=== PATIENT | male | born 1960 | race Caucasian/White ===

== ENCOUNTER → 2016-10-03 | Outpatient (CLI) | payer OTHER ==
[2016-10-03 15:45] LABS: APPEARANCE,URINE CLEAR; BILIRUBIN,URINE NEGATIVE (NEGATIVE); GLUCOSE, URINE NEGATIVE (NEGATIVE); KETONES,URINE NEGATIVE (NEGATIVE); LEUKOCYTE ESTERASE,URINE NEGATIVE (NEGATIVE); NITRITE,URINE NEGATIVE (NEGATIVE); PROTEIN,URINE NEGATIVE (NEGATIVE); URINE SPECIFIC GRAVITY 1.012; UROBILINOGEN,URINE NEGATIVE mg/dL (<2.0)
[2016-10-03 15:50] LABS: ABSOLUTE EOSINOPHILS # (AUTO) 0.3 10^3/uL (0.0-0.6); ABSOLUTE LYMPHOCYTES (AUTO) 1.7 10^3/uL (0.5-4.7); ABSOLUTE MONOCYTES (AUTO) 0.6 10^3/uL (0.1-1.4); ABSOLUTE NEUT (AUTO) 3.7 10^3/uL (1.7-8.2); BASOPHILS % (AUTO) 0.6 % (0-2); EOSINOPHILS % (AUTO) 4.2 % (0-6); HEMATOCRIT 41.9 % (37.9-51.0); HEMOGLOBIN 13.7 g/dL (13.5-17.0); HGB HCT DIFFERENCE -0.8; LYMPHOCYTES % (AUTO) 26.5 % (13-45); MEAN CORPUSCULAR HEMOGLOBIN 31.8 pg (27.0-33.4); MEAN CORPUSCULAR HGB CONC 32.7 g/dL (32.0-36.0); MEAN CORPUSCULAR VOLUME 97 fl (80-97); MONOCYTES % (AUTO) 9.2 % (3-13); RED BLOOD COUNT 4.31 10^6/uL (4.35-5.55); RED CELL DISTRIBUTION WIDTH 14.3 % (11.5-14.0); SEGMENTED NEUTROPHILS % (AUTO) 59.5 % (42-78); WHITE BLOOD COUNT 6.3 10^3/uL (4.0-10.5)
[2016-10-03 16:20] LABS: ANION GAP 10 (5-19); BLOOD UREA NITROGEN 15 mg/dL (7-20); CALCIUM 9.3 mg/dL (8.4-10.2); CARBON DIOXIDE 21 mmol/L (22-30); CHLORIDE 109 mmol/L (98-107); CREATININE RESULT 0.97 mg/dL (0.52-1.25); GLUCOSE 110 mg/dL (75-110); POTASSIUM 4.1 mmol/L (3.6-5.0); SODIUM 140.1 mmol/L (137-145)
[2016-10-03 16:40] LABS: ERYTHROCYTE SEDIMENTATION RATE 12 mm/hr (0-20)
--- NOTE | 2016-10-03 22:13 | EKG REPORT ---
SEVERITY:- DEFECTIVE ECG - RIGHT AND LEFT ARM LEADS REVERSED, PLEASE REPEAT ECG : Confirmed by: Rivka Melissa MD 03-Oct-2016 22:11:54
--- NOTE | 2016-10-07 17:45 | EKG REPORT ---
SEVERITY:- NORMAL ECG - SINUS RHYTHM : Confirmed by: Rivka Melissa MD 07-Oct-2016 17:44:55
== END ==
LOC: OD 14:12
PROVIDERS: ATTEND Orthopaedic Surgery
DX: Z01.810 Encounter for preprocedural cardiovascular examination (principal); Z01.812 Encounter for preprocedural laboratory examination; Z01.818 Encounter for other preprocedural examination
CPT/HCPCS: 36415; 71020; 80048; 81001; 85025; 85652; 93005; 93010

== ENCOUNTER 2016-11-27 11:40 | Inpatient (IN) | payer OTHER ==
[2016-11-17 11:12] LABS: HEMATOCRIT 41.5 % (37.9-51.0); HEMOGLOBIN 13.7 g/dL (13.5-17.0); HGB HCT DIFFERENCE -0.4; MEAN CORPUSCULAR HEMOGLOBIN 31.3 pg (27.0-33.4); MEAN CORPUSCULAR HGB CONC 32.9 g/dL (32.0-36.0); MEAN CORPUSCULAR VOLUME 95 fl (80-97); RED BLOOD COUNT 4.37 10^6/uL (4.35-5.55); RED CELL DISTRIBUTION WIDTH 14.7 % (11.5-14.0); WHITE BLOOD COUNT 8.2 10^3/uL (4.0-10.5)
[2016-11-17 11:15] LABS: APPEARANCE,URINE CLEAR; BILIRUBIN,URINE NEGATIVE (NEGATIVE); GLUCOSE, URINE NEGATIVE (NEGATIVE); KETONES,URINE NEGATIVE (NEGATIVE); LEUKOCYTE ESTERASE,URINE NEGATIVE (NEGATIVE); NITRITE,URINE NEGATIVE (NEGATIVE); PROTEIN,URINE NEGATIVE (NEGATIVE); URINE SPECIFIC GRAVITY 1.018; UROBILINOGEN,URINE NEGATIVE mg/dL (<2.0)
[2016-11-17 11:34] LABS: ANION GAP 13 (5-19); BLOOD UREA NITROGEN 17 mg/dL (7-20); C-REACTIVE PROTEIN 5.9 mg/L (<10.0); CALCIUM 9.2 mg/dL (8.4-10.2); CARBON DIOXIDE 19 mmol/L (22-30); CHLORIDE 109 mmol/L (98-107); CREATININE RESULT 0.94 mg/dL (0.52-1.25); GLUCOSE 124 mg/dL (75-110); SODIUM 141.1 mmol/L (137-145)
[2016-11-17 11:53] LABS: ERYTHROCYTE SEDIMENTATION RATE 15 mm/hr (0-20)
[~2016-11-27 11:40] MED LIST: DEXMEDETOMIDINE INJ 80 MCG/20 ML VIAL IV ONE; FENTANYL CITRATE INJ/PF 100 MCG/2 ML AMPUL ONE; GLYCOPYRROLATE INJ 0.4 MG/2 ML VIAL ONE; LACTATED RINGERS 1000 ML IV PRN; LIDOCAINE 0.5% INJ-PF (5 MG/ML) 50 ML SDV SUBCUT PRN; LIDOCAINE 2% INJ-PF (20 MG/ML) 10 ML AMPUL ONE; MIDAZOLAM 2 MG/2 ML INJ ONE; OXYCODONE HCL SR 10 MG TABLET PO PRN; PROPOFOL INJ 200 MG/20 ML VIAL IV ONE; SCOPOLAMINE HYDROBROMIDE 1.5 MG PATCH.TD72 TOP PRN; TRANEXAMIC ACID INJ/PF 1,000 MG/10 ML SDV IV ONE
[2016-11-27] MEDS ORDERED: ONDANSETRON HCL INJ/PF 4 MG/2 ML SDV ONE (12:47)
[2016-11-27] MEDS ORDERED: DEXAMETHASONE SOD PHOSPHATE INJ 4 MG/1 ML VIAL ONE (12:47)
[2016-11-27] MEDS: VANCOMYCIN HCL 1,000 MG in DEXTROSE 5%-WATER 250 ML IV PRN ×2 (12:50→20:33)
[2016-11-27] MEDS: LANSOPRAZOLE 15 MG TAB.RAP.DR PO PRN ×2 (12:50→20:33)
[2016-11-27] MEDS ORDERED: VANCOMYCIN HCL INJ 1000 MG VIAL ONE (13:38)
[2016-11-27] MEDS: BUPIVACAINE INJ/PF LIPOSOME/PF 266 MG/20 ML SDV IJ PRN ×2 (13:42→20:33)
[2016-11-27] MEDS: IBUPROFEN 800 MG/NS 250 ML IV PRN ×4 (13:43→20:33)
[2016-11-27] MEDS ORDERED: DIPHENHYDRAMINE HCL 50 MG/ML VIAL IV PRN ×2 (14:03→15:21)
[2016-11-27] MEDS ORDERED: FENTANYL CITRATE INJ/PF 100 MCG/2 ML AMPUL IV PRN ×3 (14:03)
[2016-11-27] MEDS ORDERED: OXYCODONE-ACETAMINOPHEN 5-325 MG TABLET PO PRN ×2 (14:03)
[2016-11-27] MEDS ORDERED: ONDANSETRON HCL INJ/PF 4 MG/2 ML SDV IV PRN (14:03)
[2016-11-27] MEDS ORDERED: MEPERIDINE HCL/PF INJ 25 MG/1 ML DISP.SYRIN IV PRN (14:03)
[2016-11-27] MEDS ORDERED: MORPHINE SULFATE 10 MG/ML INJ IV PRN ×4 (14:03→15:21)
[2016-11-27] MEDS ORDERED: PROMETHAZINE HCL INJ 25 MG/1 ML VIAL IV PRN ×2 (14:03)
[2016-11-27] MEDS ORDERED: MORPHINE SULFATE 10 MG/ML INJ ONE (14:53)
[2016-11-27] MEDS ORDERED: RINGERS SOLUTION,LACTATED 1,000 ML IV PRN (15:21)
[2016-11-27] MEDS ORDERED: ZOLPIDEM TARTRATE 5 MG TABLET PO PRN (15:21)
[2016-11-27] MEDS ORDERED: OXYCODONE HCL IR 5 MG TABLET PO PRN (15:21)
[2016-11-27] MEDS ORDERED: MORPHINE SULFATE 10 MG/ML INJ IM PRN (15:21)
[2016-11-27] MEDS ORDERED: ACETAMINOPHEN 325 MG TABLET PO PRN (15:21)
[2016-11-27] MEDS ORDERED: ONDANSETRON 4 MG TAB.RAPDIS PO PRN (15:21)
--- NOTE | 2016-11-27 15:21 | Operative Report ---
Operative Report DATE OF SURGERY: 11/27/16 PREOPERATIVE DIAGNOSIS: Failed left knee arthroplasty OPERATION: Left knee revision arthroplasty with hardware removal. Tobacco screw removal SURGEON: LEENA BECERRA ANESTHESIA: GA TISSUE REMOVED OR ALTERED: Bone and implant to pathology ESTIMATED BLOOD LOSS: 100 PROCEDURE: Implants used: Kayy triathlon size 6 TS femur, 6 tibia, 13 mm TS spacer Procedure: The patient supine on the operating table left lower extremities prepped and draped in a sterile fashion. A standard midline parapatellar approach knee is taken. Her previous knee incisions that are older than the current incision and hence I feel comfortable that making this incision should not compromise any anterior skin. Upon entering the knee capsule cultures are taken. The underlying implants are identified. The polyethylene was removed uneventfully. The femoral components removed using a saw. There is minor bone loss associated with this. Similarly the tibia is removed after removing 4 screws stacked osteotomes used to elevate the tibial component and removed uneventfully with no bone loss. The femur was then prepared using a series of intramedullary reamers until a 16 mm reamer seated. Subsequently distal cuts as well as the box cut are performed. In performing the box lining machine operator [place] screw was likely within the notch and had to be removed to complete the notch cut. Similarly the canal is reamed and reamer based cutting jigs were used to reshape the proximal tibia. Reduction was now performed with 6 femur 6 tibia associated stems and a 9 mm poly-. This was full extension and central patellofemoral tracking tracking. The patella is examined and is cleared of all soft tissue overhang. This is a metal-backed patella my bias would been to revise this because of the potential problems associated with it. However the polyethylene does not appear to be significantly degraded and the implant is clearly stable. I am somewhat concerned that if I remove this that there will be significant loss of bone stock and then reconstructing the patella will there be much more difficult. Therefore decision was made to leave it in place. Implants removed. Polymethyl methacrylate with tobramycin was mixed and used to cement the above implants in place. The plan is to segments both the articular surfaces as well as the metadiaphysis without cementing the stem themselves. Adequate care in the cement excess cement is removed. Different liners are trialed and a 13 mm liner gives adequate medial lateral stability as well as still allowing full extension. The final liner was impacted into position. The tourniquet was deflated. Hemostasis obtained with electrocautery. The wound was then closed in layers interrupted Vicryl followed by. A sterile compressive dressing was applied and the patient's return to the PACU in satisfactory condition.
[2016-11-27] MEDS ORDERED: FENTANYL CITRATE INJ/PF 100 MCG/2 ML AMPUL ONE (15:38)
--- NOTE | 2016-11-27 16:09 | RADIOLOGY REPORT (SQ) ---
EXAM DESCRIPTION: KNEE LEFT 2 VIEWS COMPLETED DATE/TIME: 11/27/2016 3:40 pm REASON FOR STUDY: Post OP -Long Cassette in PACU M25.562 PAIN IN LEFT KNEE COMPARISON: None. NUMBER OF VIEWS: Two view(s). TECHNIQUE: Digital radiographic images of the left knee post-procedure. LIMITATIONS: None. FINDINGS: BONES: No worrisome or unexpected findings post-procedure. DEVICE: Total knee arthroplasty. SOFT TISSUES: No worrisome findings. Expected postoperative soft tissue changes. IMPRESSION: SATISFACTORY POSTOPERATIVE LEFT KNEE. TECHNICAL DOCUMENTATION: JOB ID: [id number] [employer]- All Rights Reserved
[2016-11-27] MEDS ORDERED: TOPIRAMATE 100 MG TABLET PO SCH (18:00)
[2016-11-27] MEDS ORDERED: PREGABALIN 75 MG CAPSULE PO SCH (18:00)
[2016-11-27] MEDS ORDERED: SENNOSIDES/DOCUSATE 8.6-50 MG 1 EACH TABLET PO SCH (18:00)
[2016-11-27] MEDS ORDERED: LORATADINE 10 MG TABLET PO SCH (18:00)
[2016-11-27] MEDS ORDERED: PAROXETINE HCL 20 MG TABLET PO SCH (18:00)
[2016-11-27] MEDS: CEFAZOLIN INJ 1 GM VIAL IV PRN ×2 (20:30→20:33)
[2016-11-27] MEDS ORDERED: OXYCODONE HCL SR 10 MG TABLET PO SCH (22:00)
[2016-11-27] MEDS ORDERED: TRAZODONE HCL 50 MG TABLET PO SCH (22:00)
[2016-11-27] MEDS ORDERED: RIVAROXABAN 10 MG TABLET PO SCH (22:00)
[2016-11-27] MEDS: IBUPROFEN 800 MG in NORMAL SALINE 250 ML IV SCH (22:13)
[2016-11-28] MEDS ORDERED: VANCOMYCIN HCL 1,000 MG in DEXTROSE 5%-WATER 250 ML IV ONE (03:21)
[2016-11-28] MEDS: IBUPROFEN 800 MG in NORMAL SALINE 250 ML IV SCH (05:23)
[2016-11-28 05:53] LABS: HEMATOCRIT 36.8 % (37.9-51.0); HGB HCT DIFFERENCE -0.8; MEAN CORPUSCULAR HEMOGLOBIN 31.3 pg (27.0-33.4); MEAN CORPUSCULAR HGB CONC 32.6 g/dL (32.0-36.0); MEAN CORPUSCULAR VOLUME 96 fl (80-97); RED BLOOD COUNT 3.84 10^6/uL (4.35-5.55); RED CELL DISTRIBUTION WIDTH 14.6 % (11.5-14.0); WHITE BLOOD COUNT 10.8 10^3/uL (4.0-10.5)
[2016-11-28] MEDS ORDERED: LANSOPRAZOLE 30 MG TAB.RAP.DR PO SCH (06:00)
[2016-11-28 06:04] LABS: ANION GAP 7 (5-19); BLOOD UREA NITROGEN 12 mg/dL (7-20); CALCIUM 8.4 mg/dL (8.4-10.2); CARBON DIOXIDE 22 mmol/L (22-30); CHLORIDE 110 mmol/L (98-107); CREATININE RESULT 0.91 mg/dL (0.52-1.25); GLUCOSE 140 mg/dL (75-110); POTASSIUM 4.3 mmol/L (3.6-5.0); SODIUM 139.3 mmol/L (137-145)
--- NOTE | 2016-11-28 06:55 | PDOC DISCHARGE SUMMARY ---
General - Admit/Disc Date/PCP Admission Date/Primary Care Provider: 11/27/16 11:40 COURTNEY TAN, Discharge Date: 11/28/16 - Discharge Diagnosis (1) Mechanical complication associated with orthopedic device Is this a current diagnosis for this admission?: Yes - Additional Information Resuscitation Status: Full Code Discharge Diet: As Tolerated, Regular Discharge Activity: Activity As Tolerated, Balance Activity w/Rest, No Driving, No tub bath Home Medications: Loratadine [Claritin] 10 mg PO BID 10/18/16 Paroxetine HCl [Paxil] 40 mg PO BID 10/18/16 Topiramate [Topamax 100 Mg Tablet] 100 mg PO QPM 10/18/16 Trazodone HCl 100 mg PO QHS 10/18/16 History of Present Illness History of Present Illness: KAREN NARANJO is a 56 year old male persistent and progressive bilateral knee pain status post bilateral knee arthroplasty. The patient is now admitted for elective left knee arthroplasty. Hospital Course Hospital Course: Admitted through the operating room where he undergoes an uncomplicated revision left knee arthroplasty. Is returned to the floor in satisfactory condition. Remains above 36%. Patient ambulates 250 feet on the day of surgery. Physical Exam Vital Signs: Temp Pulse Resp BP Pulse Ox 36.5 C 75 14 126/69 H 97 11/27/16 22:05 11/27/16 22:05 11/27/16 22:05 11/27/16 22:05 11/27/16 22:05 Intake & Output 11/26/16 11/27/16 11/28/16 06:59 06:59 06:59 Intake Total 6618 Output Total 3500 Balance 3118 Weight 122.4 kg General appearance: PRESENT: no acute distress Head exam: PRESENT: normocephalic Eye exam: PRESENT: EOMI Respiratory exam: PRESENT: unlabored Cardiovascular exam: PRESENT: RRR Pulses: PRESENT: +1 pedal pulses bilateral Vascular exam: PRESENT: normal capillary refill GI/Abdominal exam: PRESENT: soft Rectal exam: PRESENT: deferred Extremities exam: PRESENT: other - Left lower extremity picot dressing is clean dry and intact. There is minimal pedal edema. Distal neurovascular examination is intact. Neurological exam: PRESENT: alert, awake, oriented to person, oriented to place , oriented to time, oriented to situation. ABSENT: motor sensory deficit Psychiatric exam: PRESENT: appropriate affect, normal mood. ABSENT: homicidal ideation, suicidal ideation Skin exam: PRESENT: dry, intact, warm. ABSENT: cyanosis, rash Results Laboratory Results: 11/28/16 05:34 11/28/16 05:34 11/28/16 11/28/16 05:34 05:34 WBC 10.8 H RBC 3.84 L Hgb 12.0 L Hct 36.8 L MCV 96 MCH 31.3 MCHC 32.6 RDW 14.6 H Plt Count 153 Sodium 139.3 Potassium 4.3 Chloride 110 H Carbon Dioxide 22 Anion Gap 7 BUN 12 Creatinine 0.91 Est GFR ( Amer) > 60 Est GFR (Non-Af Amer) > 60 Glucose 140 H Calcium 8.4 Impressions: Knee X-Ray 11/27/16 15:22 IMPRESSION: SATISFACTORY POSTOPERATIVE LEFT KNEE. Status: Imported from PACS Plan Discharge Plan: To be discharged home with home health nursing, home health physical therapy, wheeled walker, bedside commode. Visiting nurse service to change the left knee picot dressing on postop day #7. Patient will follow up with Dr. Gaviria in the [facility] for surgery in 2 weeks for staple removal.
[2016-11-28] MEDS ORDERED: PRENATAL VITAMIN W-O CA NO5/FE FUMARATE/FA CAPSULE PO SCH (10:00)
[2016-11-28 10:24] VITALS: BP 125/75
== END 2016-11-28 11:51 | disposition home health service (06) | DRG 468 ==
LOC: INOR 11:40 → EDSTATUS 13:45 → 4S 16:45
PROVIDERS: ADMIT Orthopaedic Surgery; ATTEND Orthopaedic Surgery
PROC: 0SPD0JZ Removal of Synthetic Substitute from Left Knee Joint, Open Approach (ICD-10-PCS; 2016-11-27)
PROC: 0SRD0J9 Replacement of Left Knee Joint with Synthetic Substitute, Cemented, Open Approach (ICD-10-PCS; principal; 2016-11-27 13:45)
PROC: 5A09357 Assistance with Respiratory Ventilation, Less than 24 Consecutive Hours, Continuous Positive Airway Pressure (ICD-10-PCS; 2016-11-28)
DX: T84.093A Other mechanical complication of internal left knee prosthesis, initial encounter (principal); F32.9 Major depressive disorder, single episode, unspecified; F41.9 Anxiety disorder, unspecified; F43.10 Post-traumatic stress disorder, unspecified; K21.9 Gastro-esophageal reflux disease without esophagitis; G43.909 Migraine, unspecified, not intractable, without status migrainosus; G47.30 Sleep apnea, unspecified; K58.9 Irritable bowel syndrome, unspecified; Z87.442 Personal history of urinary calculi; Z79.899 Other long term (current) drug therapy; Z82.49 Family history of ischemic heart disease and other diseases of the circulatory system
CPT/HCPCS: 01402; 36415; 80048; 81001; 85027; 85652; 86140; 87070; 87075; 87205; 88305; 94799; C1713; J0690; J1100; J1741; J2250; J2270; J2405; J2704; J3010; J3370; J3490; J7050; J7060

== ENCOUNTER 2016-12-14 16:17 | Emergency (ER) | payer OTHER ==
--- NOTE | 2016-12-14 16:58 | ER Document Report ---
ED Psych Disorder / Suicide - General Chief Complaint: Knee Pain Stated Complaint: LEFT KNEE PAIN,PSYCH EVAL Time Seen by Provider: 12/14/16 16:40 TRAVEL OUTSIDE OF THE [place] IN LAST 30 DAYS: No - HPI Patient complains to provider of: Other Notes: Clinician spoke with [facility] mobile mental health social worker, Karen. She disclosed the patient recently had knee surgery and thinks his knee is now infected. She continued to disclosed the patient stated he was going to cut off his leg if he did not receive help. Patient confirmed that he is already thought of it; stating "I will call EMS first, put a tourniquet on, and then cut it off." Patient disclosed to IFS worker he received OxyContin and oxycodone after his surgery; however, states he is out and in pain. woodworker helper states she observed patient sweating with high irritability. She states she is concerned the patient is going through withdrawal from misuse of this medications. Patient showed her his empty pill bottles with the labels pealed off. - Related Data Allergies/Adverse Reactions: No Known Allergies Allergy (Verified 11/27/16 12:20) Past Medical History - Past Medical History Cardiac Medical History: Denies: Hx Atrial Fibrillation, Hx Congestive Heart Failure, Hx Coronary Artery Disease, Hx Heart Attack, Hx Hypercholesterolemia, Hx Hypertension, Hx Peripheral Vascular Disease, Hx Pulmonary Embolism, Hx Heart Murmur Pulmonary Medical History: Reports: Hx Sleep Apnea - uses CPAP Denies: Hx Asthma, Hx Bronchitis, Hx COPD, Hx Pneumonia, Hx Respiratory Failure, Hx Tuberculosis Neurological Medical History: Denies: Hx Cerebrovascular Accident, Hx Seizures Renal/ Medical History: Reports: Hx Kidney Stones - 1981. Denies: Hx Benign Prostatic Hyperplasia, Hx End Stage Renal Disease, Hx Peritoneal Dialysis Malignancy Medical History: Denies Hx Lung Cancer GI Medical History: Reports: Hx Gastroesophageal Reflux Disease - occ, Hx Irritable Bowel. Denies: Hx Crohn's Disease, Hx Hiatal Hernia, Hx Liver Failure , Hx Ulcer Musculoskeltal Medical History: Denies Hx Arthritis, Denies Hx Fibromyalgia, Denies Hx Multiple Sclerosis, Denies Hx Muscular Dystrophy Psychiatric Medical History: Reports: Hx Depression - anxiety, Hx Post Traumatic Stress Disorder Denies: Hx Bipolar Disorder, Hx Dementia, Hx Schizophrenia Traumatic Medical History: Reports: Hx Fractures - toes, thumbs Past Surgical History: Reports: Hx Appendectomy, Hx Herniorrhaphy - inguinal bilateral, umbilical, Hx Tonsillectomy. Denies: Hx Bowel Surgery, Hx Cholecystectomy, Hx Colostomy, Hx Coronary Artery Bypass Graft, Hx Gastric Bypass Surgery, Hx Pacemaker - Immunizations Hx Diphtheria, Pertussis, Tetanus Vaccination: Yes Physical Exam - Vital signs Vitals: Temp Pulse Resp BP Pulse Ox 97.8 F 69 16 113/74 100 12/14/16 16:22 12/14/16 16:22 12/14/16 16:22 12/14/16 16:22 12/14/16 16:22 Course - Vital Signs Vital signs: Temp Pulse Resp BP Pulse Ox 97.8 F 69 16 113/74 100 12/14/16 16:22 12/14/16 16:22 12/14/16 16:22 12/14/16 16:22 12/14/16 16:22
[2016-12-14] MEDS ORDERED: OXYCODONE HCL IR 5 MG TABLET PO ONE (17:17)
--- NOTE | 2016-12-14 17:18 | ER Document Report ---
ED Extremity Problem, Lower - General Information source: Patient TRAVEL OUTSIDE OF THE [place] IN LAST 30 DAYS: No - HPI Patient complains to provider of: Pain, Swelling Location: Knee Context: Recent surgery Associated symptoms: Other - see above <HERMINIO PISANO - Last Filed: 12/15/16 00:13> <UNRULY ANTHONY - Last Filed: 12/15/16 00:14> - General Chief Complaint: Knee Pain Stated Complaint: LEFT KNEE PAIN,PSYCH EVAL Time Seen by Provider: 12/14/16 16:40 Notes: Patient is a 56 year old male who presents to the ED with complaints of left knee pain secondary to knee replacement surgery done on 11/27/[address] Gaviria. Patient states he wants his leg amputated and something is wrong with his implant. Patient states he saw Dr. Gaviria on Sunday (12/12/2016) and states he couldn't get any answers to his questions or a refill on his pain medication. Patient sates that he thinks he is going from withdrawal of Oxycotin and Oxycodone, his last dose was Sunday. Patient states his pain is worsening. He additionally complaints of cold and hot sweats. Patient also had swelling to his left knee. Patient states he is getting angry because he feels like nobody is in his corner. Patient is barely able to walk on it secondary to pain and has been able to walk on it since the morning after his surgery. Patient has been doing in home therapy for his knee and today. Patient denies a known fever but adds "I don't run fever anymore". Patient denies any active discharge from the incision, he had his boni removed at his appointment on Sunday. Patient denies vomiting or diarrhea. Patient has not been on any recent antibiotics. Patient recently had a temporary spinal nerve stimulator placed that has relieved significant amount of his pain. 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 Gaviria comes in his room again he will break his neck. (HERMINIO PISANO) - Related Data Allergies/Adverse Reactions: No Known Allergies Allergy (Verified 11/27/16 12:20) Past Medical History - General Information source: Patient - Social History Smoking Status: Current Every Day Smoker Cigarette use (# per day): Yes - 5 Frequency of alcohol use: None Drug Abuse: None Family History: Reviewed & Not Pertinent - Past Medical History Cardiac Medical History: Denies: Hx Atrial Fibrillation, Hx Congestive Heart Failure, Hx Coronary Artery Disease, Hx Heart Attack, Hx Hypercholesterolemia, Hx Hypertension, Hx Peripheral Vascular Disease, Hx Pulmonary Embolism, Hx Heart Murmur Pulmonary Medical History: Reports: Hx Sleep Apnea - uses CPAP Denies: Hx Asthma, Hx Bronchitis, Hx COPD, Hx Pneumonia, Hx Respiratory Failure, Hx Tuberculosis Neurological Medical History: Denies: Hx Cerebrovascular Accident, Hx Seizures Renal/ Medical History: Reports: Hx Kidney Stones - 1981. Denies: Hx Benign Prostatic Hyperplasia, Hx End Stage Renal Disease, Hx Peritoneal Dialysis Malignancy Medical History: Denies Hx Lung Cancer GI Medical History: Reports: Hx Gastroesophageal Reflux Disease - occ, Hx Irritable Bowel. Denies: Hx Crohn's Disease, Hx Hiatal Hernia, Hx Liver Failure , Hx Ulcer Musculoskeltal Medical History: Denies Hx Arthritis, Denies Hx Fibromyalgia, Denies Hx Multiple Sclerosis, Denies Hx Muscular Dystrophy Psychiatric Medical History: Reports: Hx Depression - anxiety, Hx Post Traumatic Stress Disorder Denies: Hx Bipolar Disorder, Hx Dementia, Hx Schizophrenia Traumatic Medical History: Reports: Hx Fractures - toes, thumbs Past Surgical History: Reports: Hx Appendectomy, Hx Herniorrhaphy - inguinal bilateral, umbilical, Hx Orthopedic Surgery - knee replacement, Hx Tonsillectomy. Denies: Hx Bowel Surgery, Hx Cholecystectomy, Hx Colostomy, Hx Coronary Artery Bypass Graft, Hx Gastric Bypass Surgery, Hx Pacemaker - Immunizations Hx Diphtheria, Pertussis, Tetanus Vaccination: Yes <HERMINIO PISANO - Last Filed: 12/15/16 00:13> Review of Systems - Review of Systems Constitutional: No symptoms reported. denies: Fever EENT: No symptoms reported Cardiovascular: No symptoms reported Respiratory: No symptoms reported Gastrointestinal: No symptoms reported. denies: Diarrhea, Vomiting Genitourinary: No symptoms reported Male Genitourinary: No symptoms reported Musculoskeletal: See HPI, Joint pain - left, Joint swelling - left Skin: No symptoms reported Hematologic/Lymphatic: No symptoms reported Neurological/Psychological: No symptoms reported <HERMINIO PISANO - Last Filed: 12/15/16 00:13> Physical Exam <HERMINIO PISANO - Last Filed: 12/15/16 00:13> <UNRULY ANTHONY - Last Filed: 12/15/16 00:14> - Vital signs Vitals: Temp Pulse Resp BP Pulse Ox 97.8 F 69 16 113/74 100 12/14/16 16:22 12/14/16 16:22 12/14/16 16:22 12/14/16 16:22 12/14/16 16:22 - Notes Notes: GENERAL: Alert, interacts well. No acute distress. HEAD: Normocephalic, atraumatic. EYES: Pupils equal, round, and reactive to light. Extraocular movements intact. ENT: Oral mucosa moist, tongue midline. NECK: Full range of motion. Supple. Trachea midline. LUNGS: Clear to auscultation bilaterally, no wheezes, rales, or rhonchi. No respiratory distress. HEART: Regular rate and rhythm. No murmurs, gallops, or rubs. ABDOMEN: Soft, non-tender. Non-distended. Bowel sounds present in all 4 quadrants. EXTREMITIES: Moves all 4 extremities spontaneously. No edema, radial and dorsalis pedis pulses 2/4 bilaterally. No cyanosis. Left knee has some dehiscence of wound on left knee in the lower 1/3, some erythema at wound edges and posteriorly as well, left knee is hot to touch in comparison to right knee, tender to palpation of popliteal fossa, left knee joint effusion NEUROLOGICAL: Alert and oriented x3. Normal speech. PSYCH: Hostile, agitated, clear train of thought SKIN: Some dehiscence of wound on left knee in the lower 1/3, some erythema at wound edges and posteriorly as well, left knee is hot to touch in comparison to right knee (HERMINIO PISANO) Course - Laboratory Result Diagrams: 12/14/16 17:40 12/14/16 17:40 - Consults Dr. Gaviria Time consulted: 17:18 <HERMINIO PISANO - Last Filed: 12/15/16 00:13> - Laboratory Result Diagrams: 12/14/16 17:40 12/14/16 17:40 <UNRULY ANTHONY - Last Filed: 12/15/16 00:14> - Re-evaluation Re-evalutation: 12/14/16 17:[address] Gaviria, described the patient's dissatisfaction with the pain in his knee and his feeling that the knee may be defective or infected. Described the knee as hot and slightly red, asked if he wanted me to do an aspiration. Dr. Gaviria states that he saw the patient on Sunday and removed the boni, does not feel the knee is infected, request that I do not aspirate the joint at this time. I will proceed with CBC, chemistries, blood cultures and pain medication and x- ray. 12/14/16 20:19 CBC shows mild anemia with hemoglobin 12.6, no leukocytosis, no left shift, CMP unremarkable, blood cultures pending, knee x-ray shows normal postoperative changes without any swelling of the soft tissue or dislodgment of the prosthesis. Patient was overheard by the sitter stating that he was just waiting on his prescription and he was going to go home. I do not see any proof of acute infection at this time, no indication for removing the prosthesis or starting him on antibiotics. As previously noted I did discuss this patient with Dr. Gaviria. Patient will be discharged to home. Advised to follow-up with Dr. Gaviria and continue his physical therapy. Encouraged to use ibuprofen and acetaminophen. No indication for narcotics at this point, he is 17 days out from surgery. 12/14/16 20:34 Patient quite angry that he is being discharged. Feels that he should be given a prescription for narcotics if he is going to be discharged. Explained to patient that we do not treat postoperative pain unless there is something acutely changed. Patient states he will leave and find something else for pain. No longer threatens to cut off his leg. (UNRULY ANTHONY) - Vital Signs Vital signs: Temp Pulse Resp BP Pulse Ox 98.0 F 59 L 16 130/76 H 100 12/14/16 17:42 12/14/16 17:42 12/14/16 16:22 12/14/16 17:42 12/14/16 17:42 - Laboratory Laboratory results interpreted by me: 12/14/16 17:40 RBC 3.89 L Hgb 12.4 L Hct 36.4 L RDW 14.6 H - Consults Dr. Gaviria Reason for consultation: 12/14/16 17:[address] Gaviria. he does not feel that the knee is infected at this time and requests that I not aspirate the joint at this time. (HERMINIO PISANO) Discharge <HERMINIO PISANO - Last Filed: 12/15/16 00:13> <UNRULY ANTHONY - Last Filed: 12/15/16 00:14> - Discharge Clinical Impression: Postoperative pain of left knee Condition: Stable Disposition: HOME, SELF-CARE Additional Instructions: I am not certain why you are having so much pain in your left knee today. There is no evidence of infection. I did discuss your case with Dr. Gaviria and he does not feel your knee is infected either. It is very important that you continue with your physical therapy and you follow -up with Dr. Gaviria if you are having continued pain in your knee. Please use ibuprofen (Motrin or Advil) 600-800 mg every 8 hours as needed for pain or fever. You may also use acetaminophen (Tylenol) 1000 mg every 4-6 hours as needed for pain or fever. Please be aware that many medications contain acetaminophen, do not exceed a total of 1000 mg of acetaminophen every 6 hours. Scribe Attestation: 12/15/16 00:14 I personally performed the services described in the documentation, reviewed and edited the documentation which was dictated to the scribe in my presence, and it accurately records my words and actions. (UNRULY ANTHONY) Scribe Documentation - Scribe Written by Italo:: italo Damian, 12/14/2016, 1723 acting as scribe for :: Oren <HERMINIO PISANO - Last Filed: 12/15/16 00:13>
[2016-12-14 18:15] LABS: ABSOLUTE EOSINOPHILS # (AUTO) 0.2 10^3/uL (0.0-0.6); ABSOLUTE LYMPHOCYTES (AUTO) 1.7 10^3/uL (0.5-4.7); ABSOLUTE MONOCYTES (AUTO) 0.7 10^3/uL (0.1-1.4); ABSOLUTE NEUT (AUTO) 4.9 10^3/uL (1.7-8.2); BASOPHILS % (AUTO) 0.6 % (0-2); EOSINOPHILS % (AUTO) 2.8 % (0-6); HEMATOCRIT 36.4 % (37.9-51.0); HEMOGLOBIN 12.4 g/dL (13.5-17.0); HGB HCT DIFFERENCE 0.8; LYMPHOCYTES % (AUTO) 22.3 % (13-45); MEAN CORPUSCULAR HEMOGLOBIN 31.8 pg (27.0-33.4); MEAN CORPUSCULAR HGB CONC 33.9 g/dL (32.0-36.0); MEAN CORPUSCULAR VOLUME 94 fl (80-97); MONOCYTES % (AUTO) 9.1 % (3-13); RED BLOOD COUNT 3.89 10^6/uL (4.35-5.55); RED CELL DISTRIBUTION WIDTH 14.6 % (11.5-14.0); SEGMENTED NEUTROPHILS % (AUTO) 65.2 % (42-78); WHITE BLOOD COUNT 7.6 10^3/uL (4.0-10.5)
--- NOTE | 2016-12-14 18:34 | RADIOLOGY REPORT (SQ) ---
EXAM DESCRIPTION: KNEE LEFT 3 VIEWS COMPLETED DATE/TIME: 12/14/2016 6:23 pm REASON FOR STUDY: s/p knee replacement COMPARISON: 11/27/2016 NUMBER OF VIEWS: Two views TECHNIQUE: AP and lateral radiographic images acquired of the left knee. LIMITATIONS: None. FINDINGS: MINERALIZATION: Normal. BONES: No acute fracture or dislocation. No worrisome bone lesions. JOINT: Patient is status post left total knee replacement. The prosthesis appears well seated in the distal femur and proximal tibia in the projections obtained SOFT TISSUES: No soft tissue swelling. No radio-opaque foreign body. OTHER: No other significant finding. IMPRESSION: Status post left total knee replacement. No acute fracture or dislocation. Other findi ngs as noted above TECHNICAL DOCUMENTATION: JOB ID: [id number] [employer]- All Rights Reserved
[2016-12-14 18:38] LABS: ALANINE AMINOTRANSFERASE 35 U/L (21-72); ALKALINE PHOSPHATASE 120 U/L (38-126); ANION GAP 10 (5-19); ASPARTATE AMINO TRANSFERASE 21 U/L (17-59); BILIRUBIN,DIRECT 0.3 mg/dL (0.0-0.4); BILIRUBIN,TOTAL 0.5 mg/dL (0.2-1.3); BLOOD UREA NITROGEN 17 mg/dL (7-20); CALCIUM 9.2 mg/dL (8.4-10.2); CARBON DIOXIDE 25 mmol/L (22-30); CHLORIDE 107 mmol/L (98-107); CREATININE RESULT 0.82 mg/dL (0.52-1.25); GLUCOSE 92 mg/dL (75-110); SODIUM 141.6 mmol/L (137-145); TOTAL PROTEIN 7.2 g/dL (6.3-8.2)
[2016-12-14 19:15] VITALS: BP 130/76
== END 2016-12-14 20:30 | disposition home or self-care (01) ==
LOC: ER 16:17
DX: T84.84XA Pain due to internal orthopedic prosthetic devices, implants and grafts, initial encounter (principal); M25.562 Pain in left knee; F17.210 Nicotine dependence, cigarettes, uncomplicated
CPT/HCPCS: 36415; 80053; 85025; 87040; 99284